=== PATIENT | female | born 2000 | race Caucasian/White ===

== ENCOUNTER 2023-12-26 10:56 | Emergency (ER) | payer BC, SELFPAY ==
[2023-12-26 10:57] VITALS: BP 126/90
[2023-12-26 11:24] LABS: % Basophils 0.2 % (0-2); % Eosinophils 0.5 % (0-6); % Immature Granulocytes 0.2 % (0-0.5); % Monocytes 10.5 % (1.7-9.3); % Neutrophils 60.6 % (42.2-75.2); Absolute Lymphocytes 1.6 10^3/uL (1.2-3.4); Absolute Monocytes 0.6 10^3/uL (0.1-0.6); Absolute Neutrophils 3.4 10^3/uL (1.4-6.5); Hematocrit 38.2 % (37.0-47.0); Mean Corp Hgb Conc. 31.4 g/dL (33.0-37.0); Mean Corpuscular Hgb 19.2 pg (27.0-31.0); Mean Corpuscular Volume 61.1 fL (81.0-99.0); Nucleated Red Blood Cells % 0 %; Red Blood Cell Count 6.25 10^6/uL (4.20-5.40); Red Cell Dist. Width 15.9 % (11.5-14.5); White Blood Cell Count 5.6 10^3/uL (4.8-10.8)
[2023-12-26 11:37] LABS: HCG, Serum Qualitative Screen Negative
[2023-12-26 11:39] LABS: ALT (SGPT) 18 U/L (0-35); AST (SGOT) 32 U/L (14-36); Albumin 4.7 g/dl (3.5-5.0); Alkaline Phosphatase 48 U/L (38-126); Blood Urea Nitrogen 23 mg/dl (7-17); Calcium 10.1 mg/dl (8.4-10.2); Carbon Dioxide 25 mmol/L (22-30); Chloride 100 mmol/L (98-107); Glucose 98 mg/dl (70-99); Potassium 4.2 mmol/L (3.5-5.1); Sodium 137 mmol/L (135-145); Total Bilirubin 1.4 mg/dl (0.2-1.3); Total Protein 7.7 g/dl (6.3-8.2); eGFR > 60.00
[2023-12-26 11:49] LABS: Lipase 110 U/L (23-300)
[2023-12-26 11:50] LABS: Platelet Count 214 10^3/uL (130-400)
[2023-12-26] MEDS: NSS 1000 IV (12:22)
[2023-12-26] MEDS: ZOFRAN 4 MG IV (12:25)
--- NOTE | 2023-12-26 16:08 | ED.GENMED ---
History of Present Illness
General
Chief Complaint: Abdominal Symptoms
Time Seen by Provider: 12/26/23 11:57
Travel History
Have you had any contact with someone who has COVID-19?: No
Do you have any symptoms of coronavirus? Fever > 100 degrees, chills, cough, shortness of breath, sore throat, loss of taste or smell, muscle aches, or headache?: No
History of Present Illness
History of Present Illness:
23-year-old with 24 hours nausea vomiting diarrhea. No blood or mucus in the stool. Some vague minimal lower abdominal pain. No fever. No other unusual food ingestion. No travel history. No recent antibiotics. Had a similar episode last week
that lasted for 24 hours
Past History
Past History
ED Past Medical History: None
Phy Exam
Physical Exam
Physical Exam:
GENERAL: Alert and oriented in no apparent distress
EYE: Orbits normal.
NECK: Supple
CARDIAC: Regular rate and rhythm without any obvious murmurs.
LUNGS: Clear breath sounds,normal
ABDOMEN: Soft, bowel sounds present. No rebound or guarding no mass or hernia. Very minimal nonlocalizing tenderness but no true lower quadrant tenderness. No CVA tenderness
NEUROLOGICAL: Alert and oriented , grossly non-focal
SKIN: Warm and dry, no rash or lesion, no discoloration, skin intact.
MUSCULOSKELETAL: No edema,no deformity.Good color
PSYCH: Normal and appropriate interaction.
Course
Orders/Labs/Results
Orders:
Orders
12/26/23 11:00
Test Result ONCE
12/26/23 11:06
Complete Blood Count/With Diff Urgent
Comprehensive Metabolic Panel Urgent
HCG, Serum Qualitative Screen Urgent
Lipase Urgent
12/26/23 12:03
STOOL [C difficile Antigen & Toxins] Urgent
RENAY Source: Feces/Stool
Specimen Description:
Stool Culture Urgent
RENAY Source: Feces/Stool
Specimen Description:
0.9% Sodium Chloride 1000 ml [Nss] 1,000 ml IV BOLUS
Ondansetron Injectable [Zofran] 4 mg IV NOW STA
12/26/23 13:05
US Abdomen - Appendix Only Urgent
Comment:
Reason For Exam: Abdominal pain
US Abdomen Complete/Upper Urgent
Comment:
Reason For Exam: Abdominal pain
Abnormal Lab Results
12/26/23
11:06
RBC 6.25 H 10^6/uL
(4.20-5.40)
MCV 61.1 L fL
(81.0-99.0)
MCH 19.2 L pg
(27.0-31.0)
MCHC 31.4 L g/dL
(33.0-37.0)
RDW 15.9 H %
(11.5-14.5)
Monocytes % 10.5 H %
(1.7-9.3)
BUN 23 H mg/dl
(7-17)
Total Bilirubin 1.4 H mg/dl
(0.2-1.3)
12/26/23 11:06
12/26/23 11:06
Vital Signs
Initial and Last Documented VS:
Initial Vital Signs
Temp Pulse Resp BP Pulse Ox
97.7 F 94 16 126/90 98
12/26/23 10:57 12/26/23 10:57 12/26/23 10:57 12/26/23 10:57 12/26/23 10:57
Last Documented Vital Signs
Temp Pulse Resp BP Pulse Ox
97.7 F 94 16 126/90 98
12/26/23 10:57 12/26/23 10:57 12/26/23 10:57 12/26/23 10:57 12/26/23 10:57
*Radiology
Radiology exam reviewed: radiology read reviewed (Negative ultrasounds)
*Pulse Oximetry
Patient hypoxic: no
*Critical Care Note
Total Time (30-74mins, 75-104mins- exclusive of procedures): Not Applicable
Update Note
Update Note:
Unremarkable workup. Likely viral syndrome versus food poisoning. Symptomatic treatment and follow-up
ED Attending Note
-
Portions of this chart may have been created with voice recognition software.� Occasional wrong word or��sound alike� substitutions may have occurred due to the inherent limitations of voice recognition software.
Discharge Plan
Departure
Patient Disposition: Home (Routine Discharge)
Date of Disposition: 12/26/23
Time of Disposition: 16:08
Patient with high blood pressure during this ER visit?: Yes
Discharge Problem:
Nausea vomiting diarrhea
Instructions: Diarrhea in teens and adults, Nausea and Vomiting, Adult (DC), BLOOD PRESSURE
Prescriptions:
New
ondansetron 4 mg tablet,disintegrating
4 mg PO TIDPRN PRN (Reason: nausea/vomiting) Qty: 10 0RF
Referrals:
Kaylee Singh CRNP [Family Provider] - Follow up in 2-3 days
Interventions
Interventions:
*Risk Screen - Suicide Last Done: 12/26/23 15:59
*General Assessment Last Done: 12/26/23 15:59
[facility] Assessment Last Done: 12/26/23 15:59
Discharge Date and Time
Print Language: BELIZEAN
[2023-12-26 16:27] VITALS: BP 113/57
== END 2023-12-26 16:28 | disposition home or self-care (01) ==
LOC: EMR 10:56
PROVIDERS: Emergency Medicine; EMERGENCY PHYSICIAN Emergency Medicine; FAMILY PHYSICIAN Nurse Practitioner Adult Health
DX: R11.2 Nausea with vomiting, unspecified (principal); R19.7 Diarrhea, unspecified
CPT/HCPCS: 99284; 96374; 96361; 76700; 76705; 80053; 83690; 84703; 85025

== ENCOUNTER → 2025-07-07 11:17 | Outpatient (REF) | payer BC, SELFPAY ==
[2025-07-07 12:28] LABS: Hematocrit 35.6 % (37.0-47.0); Hemoglobin 11.0 g/dL (12.0-16.0); Mean Corp Hgb Conc. 30.9 g/dL (33.0-37.0); Mean Corpuscular Volume 62.5 fL (81.0-99.0); Nucleated Red Blood Cells % 0 %; Platelet Count 218 10^3/uL (130-400); Red Cell Dist. Width 15.6 % (11.5-14.5)
[2025-07-07 12:42] LABS: ALT (SGPT) 18 U/L (0-35); AST (SGOT) 27 U/L (14-36); Albumin 4.7 g/dl (3.5-5.0); Alkaline Phosphatase 37 U/L (38-126); Blood Urea Nitrogen 11 mg/dl (7-17); Calcium 9.2 mg/dl (8.4-10.2); Carbon Dioxide 23 mmol/L (22-30); Chloride 103 mmol/L (98-107); Glucose 80 mg/dl (70-99); HDL Cholesterol 27 mg/dl; LDL Cholesterol, Calculated 136 mg/dl; Potassium 3.9 mmol/L (3.5-5.1); Sodium 136 mmol/L (135-145); Total Protein 7.7 g/dl (6.3-8.2); Very Low Density Lipoprotein 34 mg/dl (0-30); eGFR > 60.00
== END ==
LOC: REG 11:17
PROVIDERS: ATTENDING PHYSICIAN Nurse Practitioner Adult Health
DX: Z00.00 Encounter for general adult medical examination without abnormal findings (principal)
CPT/HCPCS: 36415; 80053; 80061; 84443; 85025